=== PATIENT | male | born 1950 | race Two or more races ===

== ENCOUNTER → 2021-07-04 | Outpatient (CLI) | payer MEDICARE, SELFPAY ==
[2021-07-04 18:16] LABS: D-Dimer Quantitative (DVT/PE) 0.54 FEU/ug/m (0.27-0.49)
== END | disposition home or self-care (01) ==
DX: R04.2 Hemoptysis (principal); R06.00 Dyspnea, unspecified; R06.89 Other abnormalities of breathing
CPT/HCPCS: 85379